=== PATIENT | female | born 2000 | race Hispanic/Latino ===

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

== ENCOUNTER 2023-04-19 11:29 | Emergency (ER) | payer BC ==
[~2023-04-19] VITALS: Ht 165.1 cm; Wt 100.8 kg
--- OUTSIDE RECORDS SUMMARY | 2023-04-19 11:36 | XMS ---
PreManage Notification: DAVID CEJA Security Principal Java Developer Events No recent Security Events currently on file CRITERIA MET - Group Notification CARE PROVIDERS DIMAS SALVADOR Nurse Practitioner 03/03/2018-Current KARLI PHONE: Unknown Jessica has no Care Guidelines for this patient. E.Migdalia VISIT COUNT (12 MO.) 1 H[facility]NA Ontiver[place] TOTAL 1 NOTE: Visits indicate total known visits. ED/UCC VISIT TRACKING (12 MO.) 04/19/2023 11:30 [facility] [place] TYPE: Emergency COMPLAINT: - MEDICAL CLEARANCE INPATIENT VISIT TRACKING (12 MO.) No inpatient visits to display in this time frame [id number]
[2023-04-19] MEDS ORDERED: TRAZODONE HCL50 MG PO (12:01)
[2023-04-19 13:44] LABS: BASOPHILS 0.2 % (0-2); EOSINOPHILS 0.6 % (0-6); HEMATOCRIT 42.2 % (35.0-50.0); HEMOGLOBIN 14.4 g/dL (12.0-18.0); LYMPHOCYTES 17.7 % (24-44); MCH 29.2 (27-36); MCHC 34.2 g/dl (30-36); MCV 85.4 fl (81-99); MONOCYTES 5.7 % (0-12); NEUTROPHILS 75.8 % (39-80); PLATELET COUNT 192 K/uL (140-440); RBC 4.94 M/ul (4.3-5.7); RDW 13.2 (10.5-15.0)
[2023-04-19 14:07] LABS: ACETAMINOPHEN 0 ug/mL (10-30); ALBUMIN 3.4 g/dL (3.4-5.0); ALBUMIN/GLOBULIN RATIO 0.92 (1.1-2.4); ALCOHOL, MEDICAL <3 ng/dL (<3); ALKALINE PHOSPHATASE 73 U/L (46-116); ALT (SGPT) 27 U/L (14-59); ANION GAP 13.5 (7-21); AST (SGOT) 22 U/L (15-37); BILIRUBIN, TOTAL 0.4 ng/dL (0.2-1.0); BUN/CREATININE RATIO 7.57 (6.0-28.6); CALCIUM 8.8 mg/dL (8.5-10.1); CARBON DIOXIDE 27 mmol/L (21-32); CHLORIDE 106 mmol/L (98-107); CREATININE, SERUM 0.66 mg/dL (0.55-1.02); GLOMERULAR FILTRATION RATE,EST 128 mL/min (>60); POTASSIUM 3.5 mmol/L (3.5-5.1); PROTEIN, TOTAL 7.1 g/dL (6.4-8.2); SALICYLATE 0.9 mg/dL (2.8-20.0); TSH, 3RD GENERATION 0.307 uIU/mL (0.358-3.740); UREA NITROGEN 5 mg/dL (7-18)
[2023-04-19 14:15] LABS: BILIRUBIN, URINE NEGATIVE (negative); BLOOD/HGB, URINE NEGATIVE (Negative); KETONE, URINE SMALL (Negative); LEUK ESTERASE, URINE NEGATIVE (negative); NITRITE, URINE POSITIVE (negative)
[2023-04-19 14:30] LABS: AMPHETAMINES, URINE NEGATIVE (NEGATIVE); BARBITURATES, URINE NEGATIVE (NEGATIVE); BENZODIAZEPINE, URINE NEGATIVE (NEGATIVE); BUPRENORPHINE, URINE NEGATIVE (NEGATIVE); CANNABINOID, URINE NEGATIVE (NEGATIVE); COCAINE, URINE NEGATIVE (NEGATIVE); ECSTASY, URINE NEGATIVE (NEGATIVE); FENTANYL, URINE NEGATIVE (NEGATIVE); METHADONE, URINE NEGATIVE (NEGATIVE); OPIATES, URINE NEGATIVE (NEGATIVE); OXYCODONE, URINE NEGATIVE (NEGATIVE); PHENCYCLIDINE, URINE NEGATIVE (NEGATIVE); RED BLOOD CELLS, URINE 0-1 /hpf (0-5)
[2023-04-19 14:31] LABS: BACTERIA, URINE 2+ /hpf (negative); CASTS, URINE NONE SEEN \\lpf; CRYSTALS, URINE NONE SEEN (0-1+); EPITHELIAL CELLS, URINE SQUAMOUS 2+ /lpf (0-1+)
[2023-04-19 14:32] LABS: COLLECTION TYPE, URINE CLEAN CATCH; REFLEX CULTURE, URINE No (No)
[2023-04-20 10:50] VITALS: BP 113/80
== END 2023-04-20 11:06 ==
LOC: ED 11:29
PROVIDERS: Emergency Medicine
DX: R45.851 Suicidal ideations (principal); G47.00 Insomnia, unspecified; Z11.52 Encounter for screening for COVID-19; Z88.2 Allergy status to sulfonamides
CPT/HCPCS: 36415; 80053; 80307; 81001; 84443; 84703; 85025; 99285; G0480; U0002

== ENCOUNTER 2024-05-16 16:07 | Emergency (ER) | payer BC ==
[~2024-05-16] VITALS: Ht 165.1 cm; Wt 97.5 kg
[~2024-05-16 16:07] MED LIST changes: +TRAZODONE HCL50 MG PO
--- OUTSIDE RECORDS SUMMARY | 2024-05-16 16:14 | XMS ---
PreManage Notification: DAVID CEJA Security Equipment Maintenance Supervisor Events No recent Security Events currently on file CRITERIA MET - Group Notification CARE PROVIDERS DIMAS SALVADOR Nurse Practitioner 03/03/2018-Current PHONE: [phone] Jessica has no Care Guidelines for this patient. Meagan VISIT COUNT (12 MO.) 1 HENNA Ontiveros TOTAL 1 NOTE: Visits indicate total known visits. ED/UCC VISIT TRACKING (12 MO.) 05/16/2024 16:07 [facility] [place] TYPE: Emergency COMPLAINT: - WOUND CHECK INPATIENT VISIT TRACKING (12 MO.) No inpatient visits to display in this time frame [id number]
[2024-05-16] MEDS ORDERED: ESCITALOPRAM OX20 MG PO (17:55)
[2024-05-16] MEDS ORDERED: CEPHALEXIN500 M1 PO (18:51)
[2024-05-16] MEDS ORDERED: CEPHALEXIN MONOHYDRATE 500 MG HOME.PACK PO ONE (19:00)
[2024-05-16 19:04] VITALS: BP 126/82
== END 2024-05-16 19:05 | disposition home or self-care (01) ==
LOC: ED 16:07
DX: L05.91 Pilonidal cyst without abscess (principal); J45.909 Unspecified asthma, uncomplicated; Z88.2 Allergy status to sulfonamides; Z79.899 Other long term (current) drug therapy
CPT/HCPCS: 99283; A9270

== ENCOUNTER 2024-09-01 00:04 | Emergency (ER) | payer BC ==
[~2024-09-01] VITALS: Ht 165.1 cm; Wt 89.9 kg
[~2024-09-01 00:04] MED LIST changes: +CEPHALEXIN500 M1 PO; +ESCITALOPRAM OX20 MG PO
--- OUTSIDE RECORDS SUMMARY | 2024-09-01 00:11 | XMS ---
PreManage Notification: DAVID CEJA Security Drilling Engineering Manager Events No recent Security Events currently on file CRITERIA MET - Group Notification CARE PROVIDERS DIMAS SALVADOR Nurse Practitioner 03/03/2018-Current PHONE: [phone] Jessica has no Care Guidelines for this patient. Meagan VISIT COUNT (12 MO.) 2 HENNA Ontiveros TOTAL 2 NOTE: Visits indicate total known visits. ED/UCC VISIT TRACKING (12 MO.) 09/01/2024 00:05 [facility] [place] TYPE: Emergency COMPLAINT: - EAR PAIN 05/16/2024 16:07 [facility] [place] TYPE: Emergency COMPLAINT: - WOUND CHECK DIAGNOSES: - Allergy status to sulfonamides - Other terminal operations manager (current) drug therapy - Pilonidal cyst without abscess - Unspecified asthma, uncomplicated INPATIENT VISIT TRACKING (12 MO.) No inpatient visits to display in this time frame [id number]
[2024-09-01] MEDS ORDERED: EAR WAX DROPS15 M1 OTIC (00:29)
[2024-09-01] MEDS ORDERED: NEOMYCIN/POLYMYXIN/HYDROCORT 10 ML HOME.PACK OTIC ONE (00:30)
[2024-09-01 00:35] VITALS: BP 133/79
== END 2024-09-01 00:36 | disposition home or self-care (01) ==
LOC: ED 00:04
DX: H60.93 Unspecified otitis externa, bilateral (principal); J45.909 Unspecified asthma, uncomplicated; G47.00 Insomnia, unspecified; Z79.899 Other long term (current) drug therapy; Z88.2 Allergy status to sulfonamides
CPT/HCPCS: 99282

== ENCOUNTER 2025-01-01 23:42 | Emergency (ER) | payer BC ==
[~2025-01-01] VITALS: Ht 165.1 cm; Wt 86.5 kg
[~2025-01-01 23:42] MED LIST changes: +EAR WAX DROPS15 M1 OTIC
--- OUTSIDE RECORDS SUMMARY | 2025-01-01 23:48 | XMS ---
PreManage Notification: DAVID CEJA Security Drycleaner Events No recent Security Events currently on file CRITERIA MET - Group Notification CARE PROVIDERS DIMAS SALVADOR Nurse Practitioner 03/03/2018-Current PHONE: Unknown Jessica has no Care Guidelines for this patient. E.Migdalia VISIT COUNT (12 MO.) 3 HENNA Ontiveros TOTAL 3 NOTE: Visits indicate total known visits. ED/UCC VISIT TRACKING (12 MO.) 01/01/2025 23:42 [facility] [place] TYPE: Emergency COMPLAINT: - EAR PAIN 09/01/2024 00:05 [facility] [place] TYPE: Emergency COMPLAINT: - EAR PAIN DIAGNOSES: - Allergy status to sulfonamides - Insomnia, unspecified - Otalgia, right ear - Other senior care (current) drug therapy - Unspecified asthma, uncomplicated - Unspecified otitis externa, bilateral 05/16/2024 16:07 [facility] [place] TYPE: Emergency COMPLAINT: - WOUND CHECK DIAGNOSES: - Allergy status to sulfonamides - Other technician terminal and repeater (current) drug therapy - Pilonidal cyst without abscess - Unspecified asthma, uncomplicated INPATIENT VISIT TRACKING (12 MO.) No inpatient visits to display in this time frame [id number]
[2025-01-02] MEDS ORDERED: AMOXICILLIN500 MG PO (00:20)
[2025-01-02] MEDS ORDERED: FLONASE ALLERG9.9 ML NAS (00:20)
[2025-01-02] MEDS ORDERED: AMOXICILLIN 500 MG CAP PO ONE (00:30)
[2025-01-02 00:37] VITALS: BP 131/85
== END 2025-01-02 00:38 | disposition home or self-care (01) ==
LOC: ED 23:42
DX: H66.91 Otitis media, unspecified, right ear (principal); H69.83 Other specified disorders of Eustachian tube, bilateral; H61.23 Impacted cerumen, bilateral; J45.909 Unspecified asthma, uncomplicated; Z88.2 Allergy status to sulfonamides; Z79.899 Other long term (current) drug therapy
CPT/HCPCS: 99282